=== PATIENT | male | born 1965 | race Caucasian/White ===

== ENCOUNTER 2016-09-07 06:05 | Day surgery (SDC) | payer BC ==
[~2016-09-07] VITALS: Ht 167.6 cm; Wt 82.5 kg
[2016-09-07] VITALS (20 sets, daily range): BP systolic 92–133; BP diastolic 53–80; PULSE 71–102; RESP 11–16; TEMP 97–98.5; O2SAT 97–100; Ht 167.6 cm; Wt 82.5 kg
[~2016-09-07 06:05] MED LIST: SAXA1TBM2 PO; TADA5TAB PO
--- OUTSIDE RECORDS SUMMARY | 2016-09-07 06:09 | XMS REPORT | Summary of Care ---
Author Author Washington Warren M.D. Organization Unknown Address [address] [place] [address] [place] [address] Phone Unavailable Care Team Providers Care Electronics Worker Name Role Phone Washington Warren M.D. Unavailable Unavailable Savanah Edwards Unavailable Unavailable Unavailable Unavailable Functional Status Name Dates Details Functional status health issues are not documented Status: Name Dates Details Cognitive status health issues are not documented Status: Problems Name Dates Details Asthma (493.90, J45.909) Status: Active Hypercholesterolemia (272.0, E78.00) Status: Active Diabetes (250.00, E11.9) Status: Active Microhematuria (599.72, R31.29) Status: Active Prophylactic antibiotic (V58.62, Z79.2) Status: Active Chronic cystitis (595.2, N30.20) Status: Active Bladder pain (788.99, R39.89) Status: Active Urinary urgency (788.63, R39.15) Status: Active Medications Name Dates Details Kombiglyze XR 2.5-1000 MG Oral Tablet Extended Release 24 Hour TAKE 1 TABLET BY MOUTH ONCE DAILY Washington Warren M.D. * Start 07-Jul-2016 Active Elmiron 100 MG Oral Capsule TAKE 1 CAPSULE 3 TIMES DAILY. * Refills: 0 * Start 07-Jul-2016 Active Tolterodine Tartrate 2 MG Oral Tablet Take 1 tablet twice daily * Refills: 0 * Start 07-Jul-2016 Active Tamsulosin HCl - 0.4 MG Oral Capsule ONE TABLET AT BEDTIME * Refills: 0 * Start 07-Jul-2016 Active HydrOXYzine HCl - 25 MG Oral Tablet TAKE 1 TABLET AT BEDTIME. * Refills: 0 * Start 07-Jul-2016 Active GlyBURIDE 5 MG Oral Tablet TAKE 1 TABLET TWICE DAILY BEFORE MEALS. * Refills: 0 * Start 07-Jul-2016 Active Ciprofloxacin HCl - 500 MG Oral Tablet take 1 tablet before cysto procedure with Dr. Warren. * Quantity: 1 Refills: 0 Washington Warren M.D. * Start 07-Jul-2016 Active Amoxicillin-Pot Clavulanate 875-125 MG Oral Tablet TAKE 1 TABLET EVERY 12 HOURS X 30 days * Quantity: 60 Refills: 0 Washington Warren M.D. * Start 16-Jul-2016 Active Urogesic-Blue 81.6 MG Oral Tablet Take 1 tablet QID as needed * Quantity: 60 Refills: 3 Washington Warren M.D. * Start 16-Jul-2016 Active Allergies and Adverse Reactions Name Dates Details No Known Drug Allergies (Allergy) Status: Active Past Medical History Name Dates Details History of bladder infections (V13.02, Z87.440) Status: Resolved History of hypertension (V12.59, Z86.79) Status: Resolved Procedures Procedure Dates Details History of Back Surgery History of Cystoscopy With Biopsy History of Cystoscopy With Dilation Of Bladder CYTOLOGY - URINE 4444 Ordered: 16-Jul-2016 Immunization Name Dates Details Immunizations not documented Family History Name Dates Details Family history of hypertension (V17.49, Z82.49) Comments: Family History Status: Active Social History Name Dates Details Unknown if ever smoked Vital Signs Date Test Result Details 07-Jul-2016 16:39 BP Systolic 141 mm[Hg] Status: Comments: Location: ; Position: BP Diastolic 97 mm[Hg] Status: Comments: Location: ; Position: Heart Rate 107 /min Status: Comments: Location: ; Height 68 in Status: Weight 180 lb Status: Body Mass Index Calculated 27.37 kg/m2 Status: Body Surface Area Calculated 1.95 m2 Status: Results Date Description Value Details Results not documented Plan of Care Name Dates Details Planned Observations Planned Goals not documented Planned Encounters Appointment; Provider: Washington Warren M.D. On 06-Aug-2016 16:15 Interventions Provided Medication Changes* Amoxicillin-Pot Clavulanate 875-125 MG Oral Tablet - Start * Urogesic-Blue 81.6 MG Oral Tablet - Start Labs/Procedures/Imaging* CYTOLOGY - URINE 4444; To be Done: 16 Jul 2016 Instructions Name Dates Details Instructions not documented Encounters Appointment; Washington Warren M.D. Encounter Diagnosis: Problem not documented On 07-Jul-2016 16:30
--- OUTSIDE RECORDS SUMMARY | 2016-09-07 06:09 | XMS REPORT | Summary of Care ---
Author Author Washington Warren M.D. Organization Unknown Address [address] [place] [address] [place] [address] Phone Unavailable Care Team Providers Care Olive Pitter Name Role Phone Washington Warren M.D. Unavailable [...] as needed * Quantity: 60 Refills: 3 Kelvin Fu Washington * Start 16-Jul-2016 Active Allergies and Adverse Reactions Name Dates Details No Known Drug Allergies (Allergy) Status: Active Past Medical History Name Dates Details History of bladder infections (V13.02, Z87.440) Status: Resolved History of hypertension (V12.59, Z86.79) Status: Resolved Procedures Procedure Dates Details History of Back Surgery History of Cystoscopy With Biopsy History of Cystoscopy With Dilation Of Bladder Procedures not documented Immunization Name Dates Details Immunizations not documented [...] m2 Status: Results Date Description Value Details 17-Jul-2016 08:05 CYTOLOGY - URINE 4444 CYTOLOGY Specimen referred to [facility]. Report to follow. Plan of Care Name Dates Details Planned Observations Planned Goals not documented Planned Encounters Appointment; Provider: Washington Warren M.D. On 06-Aug-2016 16:15 Instructions Name Dates Details Instructions not documented Encounters Appointment; Washington Warren M.D. Encounter Diagnosis: Problem not documented On 16-Jul-2016 16:15 Appointment; Washington Warren M.D. Encounter Diagnosis: Problem not documented On 07-Jul-2016 16:30
--- OUTSIDE RECORDS SUMMARY | 2016-09-07 06:09 | XMS REPORT | Summary of Care ---
Author Author Washington Warren M.D. Organization Unknown Address [address] [place] [address] [place] [address] Phone Unavailable Care Team Providers Care Company Dancer Name Role Phone Washington Warren M.D. Unavailable Unavailable Savanah Edwards Unavailable Unavailable Unavailable Unavailable Functional Status Name Dates Details Functional status health issues are not documented Status: Name Dates Details Cognitive status health issues are not documented Status: Problems Name Dates Details Asthma (493.90, J45.909) Status: Active Hypercholesterolemia (272.0, E78.00) Status: Active Diabetes (250.00, E11.9) Status: Active Microhematuria (599.72, R31.29) Status: Active Urinary urgency (788.63, R39.15) Status: Active Bladder pain (788.99, R39.89) Status: Active Prophylactic antibiotic (V58.62, Z79.2) Status: Active Medications Name Dates Details Kombiglyze [...] Washington Warren M.D. * Start 07-Jul-2016 Active Allergies and Adverse Reactions Name Dates [...] Encounters Appointment; Provider: Washington Warren M.D. On 16-Jul-2016 16:15 Interventions Provided Medication Changes* Ciprofloxacin HCl - 500 MG Oral Tablet - Start Instructions Name Dates Details Instructions not documented Encounters Appointment; Washington Warren M.D. Encounter Diagnosis: Problem not documented On 07-Jul-2016 16:30
--- OUTSIDE RECORDS SUMMARY | 2016-09-07 06:09 | XMS REPORT | Summary of Care ---
Author Author Washington Warren M.D. Organization Unknown Address [address] [place] [address] [place] [address] Phone Unavailable Care Team Providers Care Guest Experience Manager Name Role Phone Washington Warren M.D. Unavailable Unavailable Savanah Edwards Unavailable Unavailable Unavailable Unavailable Functional Status Name Dates Details Functional status health issues are not documented Status: Name Dates Details Cognitive status health issues are not documented Status: Problems Name Dates Details Asthma (493.90, J45.909) Status: Active Hypercholesterolemia (272.0, E78.00) Status: Active Diabetes (250.00, E11.9) Status: Active Prophylactic antibiotic (V58.62, Z79.2) Status: Active Chronic cystitis (595.2, N30.20) Status: Active Bladder pain (788.99, R39.89) Status: Active Urinary urgency (788.63, R39.15) Status: Active History of Microhematuria (599.72, R31.29) Status: Resolved Medications Name Dates Details Kombiglyze XR 2.5-1000 [...] * Refills: 0 * Start 07-Jul-2016 Active Urogesic-Blue 81.6 MG Oral Tablet Take 1 tablet QID as needed * Quantity: 60 Refills: 3 Washington Warren M.D. * Start 16-Jul-2016 Active Allergies and Adverse Reactions Name Dates Details No Known Drug Allergies (Allergy) Status: Active Past Medical History Name Dates Details History of bladder infections (V13.02, Z87.440) Status: Resolved History of hypertension (V12.59, Z86.79) Status: Resolved History of Microhematuria (599.72, R31.29) Status: Resolved Procedures Procedure Dates Details History of Back Surgery History of Cystoscopy With Biopsy History of Cystoscopy With Dilation Of Bladder Procedures not documented Immunization Name Dates Details Immunizations not documented Family History Name Dates Details Family history of hypertension (V17.49, Z82.49) Comments: Family History Status: Active Social History Name Dates Details Unknown if ever smoked Vital Signs Date Test Result Details No Known Vitals to report Results Date Description Value Details Results not documented Plan of Care Name Dates Details Planned Observations Planned Goals not documented Interventions Provided Medication Changes* Amoxicillin-Pot Clavulanate 875-125 MG Oral Tablet - Completed Instructions Name Dates Details Instructions not documented Encounters Appointment; Washington Warren M.D. Encounter Diagnosis: Problem not documented On 06-Aug-2016 16:15 Appointment; Washington Warren M.D. Encounter Diagnosis: Problem not documented On 16-Jul-2016 16:15 Appointment; Washington Warren M.D. Encounter Diagnosis: Problem not documented On 07-Jul-2016 16:30
--- OUTSIDE RECORDS SUMMARY | 2016-09-07 06:09 | XMS REPORT | Continuity of Care Document ---
Author Author [facility] [employer] [facility]. Organization [facility] Address Unknown Phone Unavailable Allergies Active Description Code Type Severity Reaction Onset Reported/Identified Relationship to Patient Clinical Status Yes No Known Allergies NKA Miscellaneous Allergy Unknown N/A 07/08/2015 Medications Medication Packaging Start Date Stop Date Route Dosage Sig Saxagliptin HCl/Metformin HCl 2.5 MG-1000 MG 07/08/2015 2 EACH QAM Glyburide 5 MG 07/08/2015 5 MG BID Hydroxyzine Hcl 25 MG 05/27/2016 25 MG BEDTIME Pentosan Polysulfate Sodium 100 MG 05/27/2016 100 MG TID Tamsulosin Hcl 0.4 MG 05/27/2016 0.4 MG DAILY Tolterodine Tartrate 2 MG 05/27/2016 2 MG BID Problems Date Dx Coded Attending Type Code Diagnosis Diagnosed By 05/18/2016 ALEXANDRA BORJAS MD, BRODIE D N30.10 Interstitial cystitis (chronic) without hematuria 05/27/2016 Brodie Aviles MD Other N30.10 INTERSTITIAL CYSTITIS ( CHRONIC) WITHOUT HEMATURIA Procedures Code [place] [address] URINALYSIS, AUTO, W/O SCOPE BRODIE HERNANDEZ MD 05/18/2016 51475 URINE CULTURE/COLONY COUNT BRODIE HERNANDEZ MD 05/18/2016 Results Test Result Range Urinalysis - 05/18/16 14:16 Hyaline Casts N0-2 Bilirubin Negative Negative Blood Trace-inta Negative Color Yellow Glucose Negative Negative Ketones Trace Negative Leukocyte Negative Negative Nitrite Negative Negative pH 5.0 5.0-9.0 Urine Appearance Clear Protein Negative Negative Urobilinogen 0.2 MG/DL 0.20 Urine Bacteria NONESEEN Urine RBC N6-10 Specific [place] 1.025 1.005-1.030 Urine WBC N0-2 Site VOID PSA - 05/19/16 09:15 PSA 0.38 NG/ML < 4.00 Culture Urine - 05/20/16 09:10 Culture Urine See Comment Encounters ACCT No. Visit Date/Time Discharge Status Pt. Type Provider Facility Loc./Unit Complaint [id number] 05/18/2016 13:45:00 05/18/2016 13:45:00 DIS [facility]
--- OUTSIDE RECORDS SUMMARY | 2016-09-07 06:09 | XMS REPORT | Summary of Care ---
Author Author Washington Warren M.D. Organization Unknown Address [address] [place] [address] [place] [address] Phone Unavailable Care Team Providers Care Litigation Paralegal Name Role Phone Washington Warren M.D. Unavailable [...] Active Bladder pain (788.99, R39.89) Status: Active Microhematuria (599.72, R31.29) Status: Active [...] to report Results Date Description Value Details 17-Jul-2016 08:05 CYTOLOGY - URINE 4444 CYTOLOGY Specimen referred to [facility]. Report to follow. Plan of Care Name Dates Details Planned Observations Planned Goals not documented Planned Encounters Appointment; Provider: Washington Warren M.D. On 18-Aug-2016 16:00 Instructions Name Dates Details Instructions not documented Encounters Appointment; Washington Warren M.D. Encounter Diagnosis: Problem not documented On 16-Jul-2016 16:15 Appointment; Washington Warren M.D. Encounter Diagnosis: Problem not documented On 07-Jul-2016 16:30
--- OUTSIDE RECORDS SUMMARY | 2016-09-07 06:09 | XMS REPORT | Summary of Care ---
Author Author Washington Warren M.D. Organization Unknown Address [address] [place] [address] [place] [address] Phone Unavailable Care Team Providers Care Preassembler Printed Circuit Board Name Role Phone Washington Warren M.D. Unavailable [...] R39.15) Status: Active Medications Name Dates Details Amoxicillin-Pot Clavulanate 875-125 MG Oral Tablet TAKE 1 TABLET EVERY 12 HOURS X 30 days Quantity: 60 Washington Warren M.D. * Start 16-Jul-2016 Active Urogesic-Blue 81.6 MG Oral Tablet Take 1 tablet QID as needed * Quantity: 60 Refills: 3 Washington Warren M.D. * Start 16-Jul-2016 Active Kombiglyze XR 2.5-1000 MG Oral Tablet Extended Release 24 Hour TAKE 1 TABLET BY MOUTH ONCE DAILY * Refills: 0 Washington Warren M.D. * Start 07-Jul-2016 Active Ciprofloxacin HCl - 500 MG Oral Tablet take 1 tablet before cysto procedure with Dr. Warren. * Quantity: 1 Refills: 0 Washington Warren M.D. * Start 07-Jul-2016 Active GlyBURIDE 5 MG [...] * Refills: 0 * Start 07-Jul-2016 Active Elmiron 100 MG Oral Capsule TAKE 1 CAPSULE 3 TIMES DAILY. * Refills: 0 * Start 07-Jul-2016 Active Allergies and Adverse [...] Urogesic-Blue 81.6 MG Oral Tablet - Start Instructions Name Dates Details Instructions not documented Encounters Appointment; Washington Warren M.D. Encounter Diagnosis: Problem not documented On 07-Jul-2016 16:30
--- OUTSIDE RECORDS SUMMARY | 2016-09-07 06:09 | XMS REPORT ---
Author Author [facility]. Organization [facility] Address [address] [place] [address] Phone [phone] Summary purpose CCDA Sent to NDMati Chief Complaint and Reason for Visit No authorized Reason for Visit (Admitting Diagnosis) is available for this visit. Problem list No authorized problems tracked for continuity of care are available for this visit. Encounters No authorized problems tracked for encounter diagnoses are available for this visit. Medications No medications recorded for this patient visit Allergies, adverse reactions, alerts No allergy information is available for this patient. Immunizations No immunizations recorded for this patient visit Relevant diagnostic tests and/or laboratory data RESULTS Urinalysis [id number]:20:00 Result Normal Range Units Site VOID Result Amended on 2016-05-18 at 14:17:42. Previous status was FR. Color Yellow Result Amended on 2016-05-18 at 14:17:42. Previous status was FR. Urine Appearance Clear Result Amended on 2016-05-18 at 14:17:42. Previous status was FR. Specific [place] 1.025 1.005-1.030 Result Amended on 2016-05-18 at 14:17:42. Previous status was FR. pH 5.0 5.0-9.0 Result Amended on 2016-05-18 at 14:17:42. Previous status was FR. Protein Negative Negative Result Amended on 2016-05-18 at 14:17:42. Previous status was FR. Glucose Negative Negative Result Amended on 2016-05-18 at 14:17:42. Previous status was FR. Ketones AB Trace Negative Result Amended on 2016-05-18 at 14:17:42. Previous status was FR. Bilirubin Negative Negative Result Amended on 2016-05-18 at 14:17:42. Previous status was FR. Blood AB Trace-inta Negative Result Amended on 2016-05-18 at 14:17:42. Previous status was FR. C&S SENT Nitrite Negative Negative Result Amended on 2016-05-18 at 14:17:42. Previous status was FR. Urobilinogen 0.2 0.20 mg/dl Result Amended on 2016-05-18 at 14:17:42. Previous status was FR. Leukocyte Negative Negative Result Amended on 2016-05-18 at 14:17:42. Previous status was FR. Urine Bacteria NONESEEN Result Amended on 2016-05-18 at 14:17:42. Previous status was FR. Urine RBC N6-10 Result Amended on 2016-05-18 at 14:17:42. Previous status was FR. Urine WBC N0-2 Result Amended on 2016-05-18 at 14:17:42. Previous status was FR. Hyaline Casts N0-2 Result Amended on 2016-05-18 at 14:17:42. Previous status was FR. Special Chemistry Group :20:00 Result Normal Range Units PSA 0.38 < 4.00 ng/ml Reference Lab Group :20:00 Result Normal Range Units Culture Urine See Comment Result Amended on 2016-05-20 at 09:10:51. Previous status was FR. Comment deleted 05/20/2016 09:10 by [facility] : .Site: Received : 05/18/16 18:45 .Order#: [id number] Urine Culture PRELIM 05/19/16 14:47 S .No growth .S: Performed at:[facility]#[id number] [facility] FOR RESULTS: * - NEW RESULT - RESULT WAS MODIFIED AFTER FINAL STATUS SET Urine Culture performed at [facility] Reference Lab, [address] [place] [address] Operations Planner Dinorah Kelly DO .Site: Received : 05/18/16 18:45 .Order#: [id number] Urine Culture FINAL 05/20/16 09:07 S .No growth .S: Performed at:[facility]#[id number] [facility] FOR RESULTS: * - NEW RESULT - RESULT WAS MODIFIED AFTER FINAL STATUS SET Urine Culture performed at [facility] Reference Lab, [address] [place], [place] [address] Operations Planner Dinorah Kelly DO Test Culture Urine with result ofSee Comment was originally reported as See Comment and was changed on 05/20/2016 09:10 by [facility] Urinalysis with Microscopic [id number] Result Normal Range Units Site VOID Result Amended on 2016-05-18 at 14:17:42. Previous status was FR. Color Yellow Result Amended on 2016-05-18 at 14:17:42. Previous status was FR. Urine Appearance Clear Result Amended on 2016-05-18 at 14:17:42. Previous status was FR. Specific [place] 1.025 1.005-1.030 Result Amended on 2016-05-18 at 14:17:42. Previous status was FR. pH 5.0 5.0-9.0 Result Amended on 2016-05-18 at 14:17:42. Previous status was FR. Protein Negative Negative Result Amended on 2016-05-18 at 14:17:42. Previous status was FR. Glucose Negative Negative Result Amended on 2016-05-18 at 14:17:42. Previous status was FR. Ketones AB Trace Negative Result Amended on 2016-05-18 at 14:17:42. Previous status was FR. Bilirubin Negative Negative Result Amended on 2016-05-18 at 14:17:42. Previous status was FR. Blood AB Trace-inta Negative Result Amended on 2016-05-18 at 14:17:42. Previous status was FR. C&S SENT Nitrite Negative Negative Result Amended on 2016-05-18 at 14:17:42. Previous status was FR. Urobilinogen 0.2 0.20 mg/dl Result Amended on 2016-05-18 at 14:17:42. Previous status was FR. Leukocyte Negative Negative Result Amended on 2016-05-18 at 14:17:42. Previous status was FR. Urine Bacteria NONESEEN Result Amended on 2016-05-18 at 14:17:42. Previous status was FR. Urine RBC N6-10 Result Amended on 2016-05-18 at 14:17:42. Previous status was FR. Urine WBC N0-2 Result Amended on 2016-05-18 at 14:17:42. Previous status was FR. Hyaline Casts N0-2 Result Amended on 2016-05-18 at 14:17:42. Previous status was FR. History of procedures No procedures recorded for this patient visit. Functional status No functional or cognitive status observations are available for this visit. Vital signs No authorized vital signs are available for this visit. Social history No Social History or smoking status observations were recorded for this visit. ( Unknown if ever smoked.) Treatment Plan No treatment plan text is available for this visit. Hospital discharge instructions No discharge instruction text is available for this visit.
[2016-09-07 06:54] LABS: ANION GAP 15 MEQ/L (5-15); BUN/CREATININE RATIO 17 RATIO (6-26); CALCIUM 9.6 MG/DL (8.4-10.2); CHLORIDE 104 MEQ/L (98-107); CO2 - CARBON DIOXIDE 25 MEQ/L (22-30); CREATININE 0.9 MG/DL (0.8-1.5); GLOMERULAR FILTRATION RATE 89; GLUCOSE 174 MG/DL (75-110); POTASSIUM 4.3 MEQ/L (3.6-5); SODIUM 144 MEQ/L (134-144)
[2016-09-07] MEDS ORDERED: LIDOCAINE 1% (10mg/ml) 2ml SDV INJ ONE (07:00)
[2016-09-07] MEDS ORDERED: LR 1,000 ML IV SCH ×2 (07:00→08:40)
--- NOTE | 2016-09-07 07:05 | ANESPREOP ---
Anesthesia Record Date and Time DATE: 09/07/16 TIME: 07:03 Pre-Op Diagnosis bladder tumor Proposed Surgical Procedure CYSTOSCOPY POSSIBLE TURBT NPO since: mn Allergies: Coded Allergies: No Known Drug Allergies (Verified Allergy, Unknown, 09/06/16) Ht/Wt/BMI Height: 5 ' 6.00 " Weight: 82.500 kg BMI: 29.4 kg/m2 Vital Signs Date Time Temp Pulse Resp B/P Pulse Ox O2 Delivery O2 Flow Rate FiO2 09/07/16 06:30 98.5 102 15 133/80 98 Room Air Medications Inpatient Medications Current Medications Medications (Trade) Dose Ordered Sig/[place]ante Start Time Stop Time Status Last Admin Dose Admin Lactated Ringer's (Lactated Ringers) 1,000 ml @ 30 mls/hr Q24H 09/07/16 07:00 09/07/16 06:58 30 MLS/HR Saxagliptin HCl/Metformin HCl (Kombiglyze Xr 2.5-1,000 mg Tab) 1 Each Tbmp.24hr , 1 TAB PO BID, (Reported) Last Taken: on 09/06/161999 Tadalafil (Cialis) 5 Mg Tablet, 1 TAB PO DAILY PRN for ERECTILE DYSFUNCTION, (Reported) Last Taken: on 09/05/16 Currently on Beta Argenis: No Medical/Surgical History Anesthesia PMH: Reports: *Diabetes (ON METFORMIN, does not check bs at home ) , *Hypertension (HISTORY, NO MEDS CURRENTLY), Asthma (PER H&P PT DENIES, mild ) , Denies: Anesthesia Reactions (NO AIRWAY ISSUES), Arthritis, Cancer, Clotting Problems, Glaucoma, Malignant Hyperthermia, Renal Disease, Sleep Apnea, Thyroid Disease Smoking Status: Never smoker Has pt. smoked today?: No Substance Use Type: does not use Alcohol Intake: none Past Surgical History Orthopedic Surgeries: Yes - LUMBAR SURGERY Abdominal Surgeries: Genitourinary Surgeries: Yes - CYSTOSCOPYS Cardiac Surgeries: Endocrine Surgeries: Reproductive Surgeries: Neurological Surgeries: Ear Surgeries: Nose Surgeries: Throat Surgeries: Other Surgeries: Yes - CYSTOSCOPYS Anesthesia Adverse Reactions: FOUND none Family Hx of Anesthesia Advers: none Pertinent Findings Laboratory Tests 09/07/16 06:34 EKG Rhythm: Sinus Rhythm Physical Exam Respiratory: Bilat breath sounds equal, Lungs clear Cardiovascular: FOUND Regular rate, rhythm, FOUND No murmur ASA: 3 Plan Anesthesia Plan: [facility]: Spinal Discussion Discussed risks/options/alternatives of anesthesia and questions answered. Patient consents. Nursing pain assessment noted. Attestation Statement Prior to the delivery of any anesthetic medication, I examined the patient, developed the plan, obtained the patient's consent and discussed the risk and benefits of the procedure with the patient/guardian. JEFF SMITH CRNA Sep 07, 2016 07:05
[2016-09-07] MEDS ORDERED: GENTAMICIN 80 MG/2 ML INJECTION ONE (07:24)
[2016-09-07] MEDS ORDERED: IOHEXOL 300 MG/ML 50ml INJECTION ONE (07:24)
[2016-09-07] MEDS ORDERED: MIDAZOLAM 2mg/2ml INJECTION ONE (07:36)
[2016-09-07] MEDS ORDERED: FENTANYL 250mcg/5ml INJECTION ONE (07:36)
[2016-09-07] MEDS ORDERED: LEVOFLOXACIN 500 mg IVPB 500 MG in D5W 100 ML IV ONE (08:00)
[2016-09-07] MEDS ORDERED: BELLADONNA-OPIUM 16.2-60mg SUPP RECTALLY PRN (08:45)
[2016-09-07] MEDS ORDERED: MORPHINE SULFATE 4 MG SYRINGE IV PRN (08:45)
[2016-09-07] MEDS ORDERED: ONDANSETRON 4mg/2ml INJECTION IV PRN (08:45)
[2016-09-07] MEDS ORDERED: UROGESIC-BLUE TABLET PO PRN (08:45)
[2016-09-07] MEDS ORDERED: HYDROCODONE/APAP 5 mg/325 mg TABLET PO PRN (08:45)
--- NOTE | 2016-09-07 09:01 | ANESPO ---
Post-Op Note Date 09/07/16 Time: 08:55 Status Pt Participated in Evaluation: Pt participated in person Vital Signs Date Time Temp Pulse Resp B/P Pulse Ox O2 Delivery O2 Flow Rate FiO2 09/07/16 08:55 77 12 110/71 99 Room Air 09/07/16 08:39 97.0 Respiratory Function: Airway patent Cardiovascular Function: Regular pulse Mental Status: Alert/oriented Pain Level Intensity: 0 Hydration: IV infusing Complications during Recovery None apparent Follow-Up Instructions Instructions Per Surgeon JEFF SMITH CRNA Sep 07, 2016 09:01
[2016-09-07] MEDS ORDERED: HYDR-4246 PO (09:09)
[2016-09-07] MEDS ORDERED: METH1TAB54 PO (09:09)
--- NOTE | 2016-09-07 09:25 | DI ---
Indication: ITS.REASON: BLADDER TUMOR PROCEDURE: RF RETROGRADE PYELOGRAM BILAT.: Encounter: Initial Comparison: Renal CT dated July 16, 2016 Findings: 11 fluoroscopic spot images are submitted for interpretation. Images show retrograde injection of contrast into the left renal collecting system with a normal appearance of the calyces and left ureter. Retrograde injection of contrast into the right collecting system shows no obvious filling defect. Impression: Fluoroscopy as above. Please refer to the dictated procedural note for further details. Fluoroscopy time is 77.9 seconds. Fluoroscopy dose is 2590 mRad. .
--- NOTE | 2016-09-07 10:42 | OPNOTEF ---
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 OPERATION PERFORMED Cystoscopy and bilateral retrograde pyelograms, transurethral resection of the bladder tumors. SURGEON [place] Warren MD ANESTHESIA Spinal anesthesia INDICATION Mr. Alvarez is a 51-year-old man with a history of hematuria and increased urinary urgency and frequency and bladder pain. He has had bladder biopsies in the past documenting chronic cystitis. The patient continued to have increased urgency and frequency with bladder pain with office cystoscopy showing multiple areas in the bladder wall with inflammatory changes in the mucosa. The patient is brought in to have these areas resected/biopsied with a retrograde pyelogram. DESCRIPTION OF PROCEDURE The patient was taken to the cystoscopy suite and under spinal anesthesia the patient was placed in dorsal lithotomy position and prepped and draped in the usual fashion for a cystoscopic procedure. A 21 Yoruba cystoscope was inserted into the bladder under direct vision without difficulty. A retrograde pyelogram was taken with a 5 Yoruba open-ended ureteral catheter on both left and right sides. This was done under fluoroscopy and showed essentially a normal upper tract without evidence of hydronephrosis or ureteral obstructions or filling defect. Cystoscopy showed very friable bladder mucosa and small bladder capacity and mild trabeculation. When bladder was distended with water under gravity and decompressed, bladder mucosa would crack and ooze, particularly the inflammatory-appearing mucosal patches that were here to resect and cauterize. Multiple areas of the tumor were seen in the dome of the bladder and posterior wall and left and right posterolateral wall. This ranges from 1 to 3.5 cm in distribution and size. The ureteral orifices are normal bilaterally in location and contour. Bladder outlet is minimally obstructing from small prostate gland. Urethra is free of stricture. Cystoscope was then removed. Urethra was calibrated with 30 and 32 Y[place]uba [place] sounds. The Gyrus resectoscope sheath was inserted into the bladder with the aid of obturator. Using the resectoscope, the suspicious bladder mucosa was resected from the dome and posterior wall as well as left and right posterolateral wall. All margins and the base of the resection site were cauterized to obtain hemostasis. Smaller suspicious area was vaporized with a cutting loop superficially. After assuring adequate hemostasis, resectoscope was removed and 18 Yoruba Castillo catheter was inserted. Bladder was irrigated to clear by hand and patient was taken to the recovery room in stable condition. SALO
--- NOTE | 2016-09-07 12:30 | NUR ---
PT INSTRUCTIONS CATHETER CARE INSTRUCTIONS TO THE PATIENT AND HIS . INSTRUCTED ON REMOVING THE CATHETER IN THE AM WITH INSTRUCTIONS TO CALL DR ROSSI AFTER 2-3 HOURS OF CATHETER REMOVAL IF HE CANNOT VOID. PT ACKNOWLEDGES UNDERSTANDING OF INSTRUCTIONS
== END 2016-09-07 12:55 | disposition home or self-care (01) ==
LOC: SCU 06:05
PROVIDERS: ATTEND Specialist
DX: N30.21 Other chronic cystitis with hematuria (principal); R35.0 Frequency of micturition; R39.15 Urgency of urination; E11.9 Type 2 diabetes mellitus without complications; J45.909 Unspecified asthma, uncomplicated; F17.220 Nicotine dependence, chewing tobacco, uncomplicated; Z79.84 Long term (current) use of oral hypoglycemic drugs; Z79.899 Other long term (current) drug therapy
CPT/HCPCS: 36415; 52214; 74420; 80048; 82948; J1580; J1956; J2250; J3010; J7060; J7120; Q9967